=== PATIENT | male | born 1980 | race Hispanic/Latino ===

== ENCOUNTER 2016-07-29 11:59 | Emergency (ER) | payer MEDICARE ==
[2016-07-29 12:00] VITALS: BMI 33.0
[2016-07-29 12:17] VITALS: TEMP 99.2
[2016-07-29] MEDS ORDERED: Vancomycin 1gm in NS 250ml 1 GM/250 ML BAG IVPB STA (12:47)
[2016-07-29] MEDS ORDERED: Sodium Chloride 0.9% 1,000 ML IV STA (12:47)
[2016-07-29] MEDS ORDERED: DiphenhydrAMINE 50 mg/ml Inj IVP STA (12:49)
--- NOTE | 2016-07-29 12:50 | ED PDOC ---
Arrival/HPI - General Chief Complaint: Headache Time Seen by Provider: 07/29/16 12:36 Historian: Patient, Spouse - History of Present Illness Narrative History of Present Illness (Text): 07/29/16 12:46 A 36 year old male, who denies any past medical history, presents to the emergency department complaining of pain over his left hip pain and redness for the past 4 days. Patient states the pain is worse with movement and palpation. reports she gave patient Amoxicillin, with mild relief. States that redness and pain has gotten better over the past day. Patient notes a headache and photophobia. States it is not the worst headache of his life and that it was not sudden in onset. Not posterior. No neck pain. Patient denies any fever, chills, nausea, vomiting, diarrhea, abdominal pain, chest pain, shortness of breath, back pain or any other complaints. Time/Duration: Other (4 days) Symptom Course: Worsening Quality: Other Context: Home Past Medical History - Provider Review Nursing Documentation Reviewed: Yes - Past History Past History: No Previous - Infectious Disease Hx of Infectious Diseases: None - Musculoskeletal/Rheumatological Other/Comment: back injury - Psychiatric Hx Depression: No Hx Emotional Abuse: No Hx Physical Abuse: No Hx Substance Use: No - Anesthesia Hx Anesthesia: No Hx Anesthesia Reactions: No Hx Malignant Hyperthermia: No - Suicidal Assessment Feels Threatened In Home Enviroment: No Family/Social History - Physician Review Nursing Documentation Reviewed: Yes Family/Social History: No Known Family HX Smoking Status: Current Some Days Smoker Hx Alcohol Use: No Hx Substance Use: No Allergies/Home Meds Allergies/Adverse Reactions: Allergies No Known Allergies Allergy (Verified 07/29/16 12:15) Home Medications: Home Meds Medication Instructions Recorded Confirmed Buprenorphine HCl/Naloxone HCl 8 mg SL DAILY 09/16/14 09/16/14 [Suboxone 8 mg-2 mg] Physical Exam - Physical Exam Narrative Physical Exam (Text): - Review of Systems Constitutional: Normal. absent: Fatigue, Weight Change, Fevers Eyes: (+) Photophobia ENT: Normal Respiratory: Normal absent: SOB, Cough, Sputum Cardiovascular: Normal absent: Chest pain, Palpitations, Syncope Gastrointestinal: Normal absent: Abdominal pain, Diarrhea, Nausea, Vomiting Genitourinary: Normal. absent: Dysuria, Frequency, Hematuria Musculoskeletal: absent: Arthralgias, Back Pain, Neck Pain Skin: abscess Neurological: (+) Headache absent: Focal Weakness Endocrine: Normal Hemo/Lymphatic: Normal Psychiatric: Normal - Physical exam Patient appears age appropriate, speaking full sentences without difficulty - Systems Exam Head: Present: Atraumatic, Normocephalic Pupils: Present: PERRL Extraocular Muscles: Present: EOMI Conjunctiva: Present: Normal Mouth: Present: Moist Mucous Membranes Neck: Present: Normal Range of Motion. No: MIDLINE TENDERNESS, Paraspinal Tenderness Respiratory/Chest: Present: Clear to Auscultation, Good Air Exchange. No: Respiratory Distress, Accessory Muscle Use, Tachypnic Cardiovascular: Present: Regular Rate and Rhythm, Normal S1, S2, Peripheral Pulses Present. No: Murmurs Abdomen: Present: Normal Bowel Sounds, No: Tenderness, Peritoneal Signs, Rebound, Guarding, Distention Back: Present: Normal Inspection. No: Midline Tenderness, Paraspinal Tenderness Upper Extremity: Present: Normal Inspection. No: Cyanosis, Edema Lower Extremity: Present: L. hip with full active and passive ROM. No: Edema Neurological: Present: GCS=15, Speech Normal, cranial nerves II through XII fully intact with no cerebellar abnormality, neuro-sensory fully intact. No focal neurological deficits. Skin: Present: Fluctuant abscess over the L. hip, large area with surrounding erythema and cellulitis. Erythematous area demarcated and dated with a surgical marker. Lymphatic: Present: OX3, NI, NC Psychiatric: Present: Alert, Oriented x 3, Normal Insight, Normal Concentration Vital Signs Reviewed: Yes Vital Signs Temp Pulse Resp BP Pulse Ox 07/29/16 14:42 99.2 F 07/29/16 12:08 99.2 F 98 H 19 127/83 98 Temperature: Afebrile Blood Pressure: Normal Pulse: Tachycardic Respiratory Rate: Normal Appearance: Positive for: Well-Appearing, Non-Toxic, Uncomfortable Pain Distress: None Mental Status: Positive for: Alert and Oriented X 3 Medical Decision Making ED Course and Treatment: 07/29/16 12:46 Impression: A 36 year old male with left hip pain and redness. On exam, large fluctant abscess with surrounding erythema and cellulitis. Plan: -- Labs -- Blood culture -- Tylenol, Benadryl, Toradol, Reglan, IV fluids and Vancomycin -- Reassess and disposition Progress Notes: 07/29/16 15:39 on reeval, pt states his BROWN and photophobia fully resolved, denies any pain or complaints at this time. No focal neurological deficits on reevaluation. bedside US reveal no pocket of fluid for I&D pt will be dc'd home with PO abx states he can f/u with PMD in 2 days for reeval pt states he feels comfortable being dc'd home with outpatient f/u instructed to return to the ER right away for fevers, chills, nausea, vomiting, headache, and if the redness goes outside the margins drawn today. Pt states he understands to return to the ER right away for new or worsening symptoms or for inability to f/u with PMD or specialist as instructed. Patient states that he fully agrees with and understands discharge instructions. States that he agrees with the plan and disposition. Verbalized and repeated discharge instructions and plan. I have given the patient opportunity to ask any additional questions. - Lab Interpretations Lab Results: 07/29/16 14:00 Lab Results 07/29/16 14:00: PT 10.3, INR 0.95, APTT 27.1 07/29/16 14:00: WBC 12.2 H, RBC 4.01, Hgb 11.7 L, Hct 34.0 L, MCV 84.8, MCH 29.2 , MCHC 34.4, RDW 13.8, Plt Count 277, MPV 10.7, Gran % 78.1 H, Lymph % (Auto) 12.8 L, [place] % (Auto) 7.4 H, Eos % (Auto) 1.6, Baso % (Auto) 0.1, Gran # 9.54 H , Lymph # 1.6, [place] # 0.9 H, Eos # 0.2, Baso # 0.01 I have reviewed the lab results: Yes - Medication Orders Current Medication Orders: Discontinued Medications Acetaminophen (Tylenol 325mg Tab) 975 mg PO STAT STA Stop: 07/29/16 12:48 Last Admin: 07/29/16 14:42 Dose: 975 mg Diphenhydramine HCl (Benadryl) 25 mg IVP STAT STA Stop: 07/29/16 12:50 Last Admin: 07/29/16 14:44 Dose: 25 mg Sodium Chloride (Sodium Chloride 0.9%) 1,000 mls @ 1,000 mls/hr IV .Q1H STA Stop: 07/29/16 13:46 Last Admin: 07/29/16 14:44 Dose: 1,000 mls/hr Vancomycin HCl (Vancomycin 1gm) 1 gm in 250 mls @ 133.333 mls/hr IVPB STAT STA PRN Reason: Protocol Stop: 07/29/16 14:39 Last Admin: 07/29/16 14:44 Dose: 133.333 mls/hr Ketorolac Tromethamine (Toradol) 15 mg IVP STAT STA Stop: 07/29/16 12:48 Last Admin: 07/29/16 14:43 Dose: 15 mg Metoclopramide HCl (Reglan) 10 mg IVP STAT STA Stop: 07/29/16 12:50 Last Admin: 07/29/16 14:44 Dose: 10 mg - Scribe Statement The provider has reviewed the documentation as recorded by the Tobias Waters Provider Scribe Attestation: All medical record entries made by the Tobias were at my direction and personally dictated by me. I have reviewed the chart and agree that the record accurately reflects my personal performance of the history, physical exam, medical decision making, and the department course for this patient. I have also personally directed, reviewed, and agree with the discharge instructions and disposition. Disposition/Present on Arrival - Present on Arrival Any Indicators Present on Arrival: No History of DVT/PE: No History of Uncontrolled Diabetes: No Urinary Catheter: No History of Decub. Ulcer: No History Surgical Site Infection Following: None - Disposition Have Diagnosis and Disposition been Completed?: Yes Diagnosis: Abscess, Headache Disposition: HOME/ ROUTINE Disposition Time: 15:57 Patient Plan: Discharge Condition: GOOD Discharge Instructions (ExitCare): Abscess (ED), Sitz Bath (GEN), General Headache (ED) Additional Instructions: Return to the ER right away for fevers, chills, nausea, vomiting, headache, and if the redness goes outside the margins drawn today. PLEASE RETURN TO THE EMERGENCY DEPARTMENT FOR NEW OR WORSENING SYMPTOMS. RETURN RIGHT AWAY IF YOU CANNOT FOLLOW UP WITH YOUR PRIMARY CARE DOCTOR, CLINIC, OR SPECIALIST IN 1-2 DAYS. Prescriptions: Acetaminophen [Tylenol Extra Strength] 1,000 mg PO BID PRN #16 tablet PRN Reason: Pain, Moderate (4-7) Cephalexin [Keflex] 500 mg PO TID #21 capsule Ibuprofen [Motrin Tab] 800 mg PO BID #12 tab Sulfamethoxazole/Trimethoprim [Bactrim DS 800 mg-160 mg] 1 tab PO Q12 #20 tab Forms: WORK NOTE
[2016-07-29 14:50] LABS: ADD MANUAL DIFF? NO
[2016-07-29 14:58] LABS: BASO # 0.01 K/mm3 (0.0-2.0); BASO % 0.1 % (0.0-3.0); EOS # 0.2 (0.0-0.7); EOS % 1.6 % (1.5-5.0); GRAN # 9.54 (1.4-6.5); GRAN % 78.1 % (50.0-68.0); LYMPH # 1.6 (1.2-3.4); LYMPH % 12.8 % (22.0-35.0); MEAN CELL VOLUME 84.8 fL (80.0-105.0); MEAN CORPUSCULAR HEMOGLOBIN 29.2 pg (25.0-35.0); MEAN CORPUSCULAR HGB CONC 34.4 g/dl (31.0-37.0); MEAN PLATELET VOLUME 10.7 fl (7.0-11.0); MONO # 0.9 (0.1-0.6); MONO % 7.4 % (1.0-6.0); PLATELET COUNT 277 10^3/uL (120.0-450.0); RED CELL DISTRIBUTION WIDTH 13.8 % (11.5-14.5); WHITE BLOOD COUNT 12.2 10^3/ul (4.5-11.0)
[2016-07-29 15:08] LABS: INR 0.95 (0.93-1.08); PARTIAL THROMBOPLASTIN TIME 27.1 Seconds (23.7-30.8)
[2016-07-29 16:37] LABS: ALKALINE PHOSPHATASE 89 U/L (38-133); ALT/SGPT 62 U/L (7-56); AST/SGOT 26 U/L (15-59); BILIRUBIN,TOTAL 0.4 mg/dL (0.2-1.3); BLOOD UREA NITROGEN 12 mg/dL (7-21); CALCIUM 8.2 mg/dL (8.4-10.5); CARBON DIOXIDE 29 mmol/L (21-33); CHLORIDE 100 mmol/L (98-107); GFR AFRICAN-AMERICAN > 60; GLUCOSE,RANDOM 93 mg/dL (70-110); POTASSIUM 4.2 mmol/L (3.6-5.0); SODIUM 138 mmol/L (132-148); TOTAL PROTEIN 6.5 g/dL (5.8-8.3)
[2016-07-29 17:19] VITALS: BP 120/82; PULSE 70; RESP 18; O2SAT 99
== END 2016-07-29 17:19 | disposition home or self-care (01) ==
LOC: ED 11:59
DX: R51 Headache (principal); L02.416 Cutaneous abscess of left lower limb
CPT/HCPCS: 80053; 85025; 85610; 85730; 87040; 96365; 96366; 96375; 99285; J1200; J1885; J2765; J7040